=== PATIENT | male | born 1970 | race Caucasian/White ===

== ENCOUNTER 2023-07-09 13:50 | Outpatient (OUT) | payer OTHER, SELFPAY ==
--- NOTE | 2023-07-09 | XR_ITS ---
The [address] [address] Patient Name: DONNY BLAS MRN: [id number] date: 1970 Sex: M Assigned Patient Location: [facility] Current Patient Location: Accession/Order Number: [id number] Exam Date: 07/09/2023 14:15 Report Date: 07/10/2023 09:31 At the request of: DEV CONTI Procedure: XR foot LT min 3V PROCEDURE: XR foot LT min 3V HISTORY: LEFT FOOT PAIN , heel pain for one month, no known injury COMPARISON: None. FINDINGS: BONES:No fracture, acute abnormality, or significant arthropathy. SOFT TISSUES:No visible soft tissue swelling. EFFUSION:None visible. OTHER: Negative. XR/XR foot LT min 3V IMPRESSION: 1. No acute or suspicious bone abnormality. 2. Tiny calcaneal plantar spur of uncertain clinical significance. Electronically authenticated by: BRAN BABIN Date: 07/10/2023 09:31
== END 2023-07-09 13:51 | disposition home or self-care (01) ==
LOC: RAD 13:50
PROVIDERS: Visit Provider Physician Assistant
DX: M79.672 Pain in left foot (principal); M77.32 Calcaneal spur, left foot
CPT/HCPCS: 73630

== ENCOUNTER 2023-07-14 12:12 | Outpatient (OUT) | payer OTHER, SELFPAY ==
--- NOTE | 2023-07-14 12:33 | XR_ITS ---
[address] [address] Patient Name: DONNY BLAS MRN: [id number] date: 1970 Sex: M Assigned Patient Location: LAB Current Patient Location: LAB Accession/Order Number: [id number] Exam Date: 07/14/2023 12:28 Report Date: 07/14/2023 13:18 At the request of: SHAIKH JESSE Procedure: XR cervical spine 2-3V EXAM: XR cervical spine 2-3V HISTORY: Chronic Neck Pain M54.2 COMPARISON: None. TECHNIQUE: 3 views Findings/impression: Status post anterior fusion of C5-C6. Anterolisthesis of C4-C5 by 3 mm. No acute fracture or subluxation. Multilevel endplate degenerative changes and disc disease. Electronically authenticated by: MOISES BANDA Date: 07/14/2023 13:18
[2023-07-14 13:01] LABS: Basophils Absolute Auto 0.1 10^3/uL (0.0-0.1); Basophils Percent Auto 1.2 % (0.2-2.0); Eosinophils Absolute Auto 0.2 10^3/uL (0.0-0.7); Eosinophils Percent Auto 2.9 % (0.9-7.0); Hematocrit 39.4 % (42.0-54.0); Hemoglobin 13.3 g/dL (14.0-18.0); Immature Granulocytes Abs Auto 0.02 10^3/uL (0.00-0.03); Immature Granulocytes Pct Auto 0.3 % (0.0-0.5); Lymphocytes Absolute Auto 2.6 10^3/uL (1.2-3.8); Lymphocytes Percent Auto 37.3 % (20.5-60.0); Mean Corpuscular HGB Conc 33.8 g/dL (29.9-35.2); Mean Corpuscular Hemoglobin 31.4 pg (25.9-34.0); Mean Corpuscular Volume 92.9 fL (80.0-94.0); Mean Platelet Volume 11.2 fL (9.5-13.5); Monocytes Absolute Auto 0.3 10^3/uL (0.3-0.8); Monocytes Percent Auto 4.9 % (1.7-12.0); Neutrophils Absolute Auto 3.7 10^3/uL (1.4-6.5); Neutrophils Percent Auto 53.4 % (43.0-75.0); Platelet Count 184 10^3/uL (150-450); Red Blood Count 4.24 10^6/uL (4.70-6.10); Red Cell Distribution Width 12.8 % (11.0-15.0); White Blood Count 6.9 10^3/uL (4.0-11.0)
[2023-07-14 13:37] LABS: Alanine Aminotransferase 16 U/L (16-63); Albumin Globulin Ratio 1.1; Albumin Level 3.9 g/dL (3.4-5.0); Alkaline Phosphatase 60 U/L (46-116); Anion Gap 9.3; Aspartate Amino Transferase 12 U/L (15-37); BUN Creatinine Ratio 14.1; Bilirubin Total 0.7 mg/dL (0.2-1.0); Calcium 8.9 mg/dL (8.5-10.1); Carbon Dioxide 31.5 mmol/L (21.0-32.0); Chloride 100 mmol/L (98-107); Estimated GFR (African America >60 (>=60); Estimated GFR (Non-African Ame >60 (>=60); Globulin 3.6 g/dL; Glucose 70 mg/dL (74-106); Potassium 3.8 mmol/L (3.5-5.1); Sodium 137 mmol/L (136-145); Total Protein 7.5 g/dL (6.4-8.2)
== END 2023-07-14 12:13 | disposition home or self-care (01) ==
LOC: LAB 12:14
PROVIDERS: PCP Internal Medicine; Visit Provider Internal Medicine
DX: I10 Essential (primary) hypertension (principal); M54.2 Cervicalgia; G89.29 Other chronic pain; Z98.1 Arthrodesis status; M50.90 Cervical disc disorder, unspecified, unspecified cervical region; M47.812 Spondylosis without myelopathy or radiculopathy, cervical region
CPT/HCPCS: 36415; 72040; 80053; 85025

== ENCOUNTER 2023-09-07 07:55 | Outpatient (OUT) | payer OTHER, SELFPAY ==
--- NOTE | 2023-09-07 08:06 | MR_ITS ---
[address] [address] Patient Name: DONNY BLAS MRN: [id number] date: 1970 Sex: M Assigned Patient Location: MRI Current Patient Location: MRI Accession/Order Number: [id number] Exam Date: 09/07/2023 08:20 Report Date: 09/07/2023 09:28 At the request of: SHAIKH JESSE Procedure: MR cervical spine wo con EXAM: MR cervical spine wo con CLINICAL INDICATION: Neck Pain With History Of Cervical Spine Surgery M54.2 COMPARISON: Cervical spine radiographs 07/14/2023. TECHNIQUE/PROTOCOL: Standard noncontrast cervical spine protocol MR performed (Sagittal STIR, T1, T2, axial gradient, T2-weighted images). FINDINGS: Evaluation is limited due to substantial patient motion artifact. Spinal Cord: Normal in caliber and grossly normal in signal. Alignment: Normal craniocervical junction. Straightening of the physiologic cervical lordosis could relate at least in part to patient positioning. Postoperative Changes: ACDF at C5-C6. Marrow Signal: Grossly normal. Vertebral Body Heights: Maintained. Paraspinal Soft Tissues: Normal. Neck Soft Tissues: Normal. Spondylotic Changes: Multilevel spondylotic changes include diffuse disc desiccation and varying degrees of intervertebral disc height loss, osteophytic ridging, and facet/uncovertebral joint hypertrophy. C2-C3: Slight left central disc osteophyte complex indents the ventral thecal sac. Mild spinal canal narrowing. Right foramen is patent. Mild left foraminal narrowing is contributed to by uncovertebral and facet joint hypertrophy. C3-C4: No gross disc bulge or herniation. No high-grade spinal canal narrowing. Suspected moderate to advanced bilateral foraminal narrowing is contributed to by uncovertebral and facet joint hypertrophy. Complete evaluation of foraminal narrowing is limited due to patient motion artifact. C4-C5: No gross disc bulge or herniation. No high-grade spinal canal narrowing. Suspected advanced right and mild left foraminal narrowing is contributed to by uncovertebral and facet joint hypertrophy. Complete evaluation of foraminal narrowing is limited due to patient motion artifact. C5-C6: No gross disc bulge or herniation. No high-grade spinal canal narrowing. Suspected moderate to advanced bilateral foraminal narrowing is contributed to by uncovertebral and facet joint hypertrophy. Complete evaluation of foraminal narrowing is limited due to patient motion artifact. C6-C7: Suspected slight disc osteophyte complex indents the ventral thecal sac. This in conjunction with ligamentum flavum hypertrophy overall results in mild spinal canal narrowing. Suspected advanced bilateral foraminal narrowing is contributed to by uncovertebral and facet joint hypertrophy. C7-T1: No disc bulge or herniation. No high-grade spinal canal or foraminal narrowing. MR/MR cervical spine wo con IMPRESSION: 1. Limited evaluation due to substantial patient motion artifact. Given this constraint, there are multilevel spondylotic changes without high-grade spinal canal narrowing at any cervical level. 2. Suspected advanced right foraminal narrowing at C4-C5 and advanced bilateral foraminal narrowing at C6-C7. Suspected moderate to advanced bilateral foraminal narrowing at C3-C4 and C5-C6. Electronically authenticated by: MERLE SANCHEZ Date: 09/07/2023 09:28
== END 2023-09-07 07:56 | disposition home or self-care (01) ==
LOC: MRI 07:55
PROVIDERS: PCP Internal Medicine; Visit Provider Internal Medicine
DX: M54.2 Cervicalgia (principal)
CPT/HCPCS: 72141

== ENCOUNTER 2024-01-01 14:00 | Emergency (ER) | payer OTHER, SELFPAY ==
[2024-01-01 14:01] VITALS: BP 162/109; PULSE 80; TEMP 36.7; O2SAT 100; BMI 28.1
[2024-01-01 14:31] LABS: Glucometer 200 mg/dL (74-106)
[2024-01-01] MEDS: ONDANSETRON PF 4 MG/2 ML VIAL IV (14:48)
[2024-01-01] MEDS: 0.9 % SODIUM CHLORIDE 1,000 ML 999 ML IV (14:49)
[2024-01-01 15:06] LABS: Basophils Absolute Auto 0.1 10^3/uL (0.0-0.1); Basophils Percent Auto 0.3 % (0.2-2.0); Hematocrit 41.3 % (42.0-54.0); Hemoglobin 14.5 g/dL (14.0-18.0); Immature Granulocytes Pct Auto 0.5 % (0.0-0.5); Lymphocytes Absolute Auto 1.2 10^3/uL (1.2-3.8); Mean Corpuscular HGB Conc 35.1 g/dL (29.9-35.2); Mean Corpuscular Hemoglobin 30.4 pg (25.9-34.0); Mean Corpuscular Volume 86.6 fL (80.0-94.0); Monocytes Absolute Auto 0.7 10^3/uL (0.3-0.8); Monocytes Percent Auto 3.4 % (1.7-12.0); Neutrophils Absolute Auto 18.6 10^3/uL (1.4-6.5); Neutrophils Percent Auto 89.8 % (43.0-75.0); Platelet Count 236 10^3/uL (150-450); Red Blood Count 4.77 10^6/uL (4.70-6.10); Red Cell Distribution Width 12.2 % (11.0-15.0); White Blood Count 20.7 10^3/uL (4.0-11.0)
--- NOTE | 2024-01-01 15:11 | ED_ITS ---
Documented by User: Lala Federica 01/01/24 18:40 HPI - Nausea/Vomiting/Diarrhea General Chief complaint: Nausea/Vomiting/Diarrhea Stated complaint: ABDOMINAL PAIN Time Seen by Provider: 01/01/24 14:09 Source: patient Mode of arrival: walk-in History of Present Illness HPI Narrative: 53-year-old male presents for chief complaint of nausea and vomiting. Patient states has been unable to keep any fluids down today. He is hyperventilating states he has lower abdominal pain From vomiting so frequently. He denies a history of diabetes. He denies any fever. He states he has been chilled. He denies any known sick contacts.Patient's abdomen is soft on examination. He is afebrile. He denies a history of hypertension but blood pressure is elevated at this time. He does not appear toxic but does appear to feel ill. Related Data Previous Rx's ?Medication ?Instructions ?Recorded dicyclomine 20 mg tablet 20 mg PO TID PRN abdominal pain 01/01/24 #10 tabs ondansetron 4 mg disintegrating 4 mg PO Q8H PRN nausea and 01/01/24 tablet vomiting 3 days #10 tabs Allergies Allergy/AdvReac Type Severity Reaction Status Date / Time No Known Drug Allergies Allergy Verified 01/01/24 14:05 Review of Systems ROS Narrative All Systems are negative except as noted/marked.All systems reviewed and otherwise negative Exam Narrative Exam Narrative: Nurses note and vital signs reviewed and patient is not hypoxic. General: The patient appears ill with some distress due to nausea and vomiting Skin: Warm, dry, no pallor noted. There is no rash noted. Head: Normocephalic, atraumatic Eye: Normal conjunctiva, no drainage, EOMI. PERRL Ears, Nose, Mouth, and Throat: oral mucosa is moist. Nares patent. Mouth without vesicles. Ear canals patent. Tm's without Erythema Cardiovascular: Regular Rate and Rhythm Respiratory: Patient is in mild distress and hyperventilating due to vomting Back: non-tender, no CVA tenderness bilaterally to percussion. GI: Normal bowel sounds, no tenderness to palpation, no masses appreciated. No rebound, guarding, or rigidity noted. Musculoskeletal: The patient has no evidence of calf tenderness, no pitting edema, symmetrical pulses noted bilaterally Neurological: A&O x3 , normal speech Psychiatric: Cooperative Constitutional Vital Signs, click to edit/add: Last Vital Signs Temp 98.0 F 01/01/24 14:01 Pulse 80 01/01/24 14:01 Resp 22 H 01/01/24 14:01 BP 180/94 H 01/01/24 18:09 Pulse Ox 100 01/01/24 14:01 O2 Del Method Room Air 01/01/24 14:01 Course Vital Signs Vital signs: Vital Signs Temperature 98.0 F 01/01/24 14:01 Pulse Rate 80 01/01/24 14:01 Respiratory Rate 22 H 01/01/24 14:01 Blood Pressure 162/109 H 01/01/24 14:01 Pulse Oximetry 100 01/01/24 14:01 Oxygen Delivery Method Room Air 01/01/24 14:01 Temperature 98.0 F 01/01/24 14:01 Pulse Rate 80 01/01/24 14:01 Respiratory Rate 22 H 01/01/24 14:01 Blood Pressure 180/94 H 01/01/24 18:09 Pulse Oximetry 100 01/01/24 14:01 Oxygen Delivery Method Room Air 01/01/24 14:01 MDM - Nausea/Vomiting/Diarrhea MDM Narrative Medical decision making narrative: 53-year-old male presents for chief complaint of nausea and vomiting. Patient states has been unable to keep any fluids down today. He is hyperventilating states he has lower abdominal pain From vomiting so frequently. He denies a history of diabetes. He denies any fever. He states he has been chilled. He denies any known sick contacts.Patient's abdomen is soft on examination. He is afebrile. He denies a history of hypertension but blood pressure is elevated at this time. He does not appear toxic but does appear to feel ill. Upon arrival to emergency room, IV was established patient was given IV fluids. CBC, CMP and lactic acid were ordered. Blood work resulted in an elevated white blood cell count with shift BUN and creatinine within normal limits, glucose was 188, initial lactic acid was 3.7. Patient was given 2 L IV fluid Zofran and Phenergan. He states he feels much better. CT scan was ordered due to elevated white blood cell count. CT scan read as enterocolitis. Repeat lactic acid was 2.2. Patient feels much better and wishes to go home. Medicated with Toradol. He will be discharged home with Zofran and Mayelin. Patient was educated on clear liquid diet for the next 48 hours. Patient is continue with Gatorade and fluids. He will follow-up with primary care physician. Patient agrees with plan of care all questions were answered Differential Diagnosis Differential diagnosis: Likely traveler's diarrhea, food poisoning and gastroenteritis Medical Records Attestation: I reviewed the patient's medical records. Lab Data Attestation: I reviewed the patient's lab results. Labs: Lab Results 01/01/24 01/01/24 01/01/24 Range/Units 14:30 14:48 14:51 WBC 20.7 H (4.0-11.0) 10^3/uL RBC 4.77 (4.70-6.10) 10^6/uL Hgb 14.5 (14.0-18.0) g/dL Hct 41.3 L (42.0-54.0) % MCV 86.6 (80.0-94.0) fL MCH 30.4 (25.9-34.0) pg MCHC 35.1 (29.9-35.2) g/dL RDW 12.2 (11.0-15.0) % Plt Count 236 (150-450) 10^3/uL MPV 12.0 (9.5-13.5) fL Neut % (Auto) 89.8 H (43.0-75.0) % Lymph % (Auto) 6.0 L (20.5-60.0) % [place] % (Auto) 3.4 (1.7-12.0) % Eos % (Auto) 0.0 L (0.9-7.0) % Baso % (Auto) 0.3 (0.2-2.0) % Neut # (Auto) 18.6 H (1.4-6.5) 10^3/uL Lymph # (Auto) 1.2 (1.2-3.8) 10^3/uL [place] # (Auto) 0.7 (0.3-0.8) 10^3/uL Eos # (Auto) 0.0 (0.0-0.7) 10^3/uL Baso # (Auto) 0.1 (0.0-0.1) 10^3/uL Abs Immat Gran (auto) 0.10 H (0.00-0.03) 10^3/uL Imm/Tot Granulo (auto) 0.5 (0.0-0.5) % Sodium 137 (136-145) mmol/L Potassium 3.1 L (3.5-5.1) mmol/L Chloride 99 (98-107) mmol/L Carbon Dioxide 22.2 (21.0-32.0) mmol/L Anion Gap 18.9 BUN 15.0 (7.0-18.0) mg/dL Creatinine 1.12 (0.70-1.30) mg/dL Est GFR ( Amer) >60 (>=60) Est GFR (Non-Af Amer) >60 (>=60) BUN/Creatinine Ratio 13.4 Glucose 188 H (74-106) mg/dL Lactate 3.7 H* (0.4-2.0) mmol/L Calcium 10.3 H (8.5-10.1) mg/dL Total Bilirubin 1.3 H (0.2-1.0) mg/dL AST 15 (15-37) U/L ALT 29 (16-63) U/L Alkaline Phosphatase 72 (46-116) U/L Troponin I High Sens 7.7 (4.0-76.1) pg/mL Total Protein 8.4 H (6.4-8.2) g/dL Albumin 4.6 (3.4-5.0) g/dL Globulin 3.8 g/dL Albumin/Globulin Ratio 1.2 Lipase 21.0 (16.0-77.0) U/L Influenza Type A Ag Negative Influenza Type B Ag Negative POC Glucose 200 H (74-106) mg/dL 01/01/24 Range/Units 17:45 WBC (4.0-11.0) 10^3/uL RBC (4.70-6.10) 10^6/uL Hgb (14.0-18.0) g/dL Hct (42.0-54.0) % MCV (80.0-94.0) fL MCH (25.9-34.0) pg MCHC (29.9-35.2) g/dL RDW (11.0-15.0) % Plt Count (150-450) 10^3/uL MPV (9.5-13.5) fL Neut % (Auto) (43.0-75.0) % Lymph % (Auto) (20.5-60.0) % [place] % (Auto) (1.7-12.0) % Eos % (Auto) (0.9-7.0) % Baso % (Auto) (0.2-2.0) % Neut # (Auto) (1.4-6.5) 10^3/uL Lymph # (Auto) (1.2-3.8) 10^3/uL [place] # (Auto) (0.3-0.8) 10^3/uL Eos # (Auto) (0.0-0.7) 10^3/uL Baso # (Auto) (0.0-0.1) 10^3/uL Abs Immat Gran (auto) (0.00-0.03) 10^3/uL Imm/Tot Granulo (auto) (0.0-0.5) % Sodium (136-145) mmol/L Potassium (3.5-5.1) mmol/L Chloride (98-107) mmol/L Carbon Dioxide (21.0-32.0) mmol/L Anion Gap BUN (7.0-18.0) mg/dL Creatinine (0.70-1.30) mg/dL Est GFR ( Amer) (>=60) Est GFR (Non-Af Amer) (>=60) BUN/Creatinine Ratio Glucose (74-106) mg/dL Lactate 2.2 H* (0.4-2.0) mmol/L Calcium (8.5-10.1) mg/dL Total Bilirubin (0.2-1.0) mg/dL AST (15-37) U/L ALT (16-63) U/L Alkaline Phosphatase (46-116) U/L Troponin I High Sens (4.0-76.1) pg/mL Total Protein (6.4-8.2) g/dL Albumin (3.4-5.0) g/dL Globulin g/dL Albumin/Globulin Ratio Lipase (16.0-77.0) U/L Influenza Type A Ag Influenza Type B Ag POC Glucose (74-106) mg/dL Imaging Data CT scan - abdomen: Attestation: I have reviewed the pertinent imaging results. Radiologist's impression: ITS Impressions Chest X-Ray 01/01/24 15:28 IMPRESSION: 1. The costophrenic angles are not included within the [id number], however, these can be assessed on the upcoming CT abdomen/pelvis. 2. No acute cardiopulmonary abnormality of the visualized chest. Electronically authenticated by: MIREYA LINDSAY Date: 01/01/2024 15:46 Abdomen/Pelvis CT 01/01/24 16:38 IMPRESSION: Findings may represent enterocolitis, correlate clinically. Electronically authenticated by: MERRILL HUMPHREY Date: 01/01/2024 17:03 Discharge Plan Discharge Stand Alone Forms: Portal Instructions Chief Complaint: Nausea/Vomiting/Diarrhea Clinical Impression: Enterocolitis, Nausea & vomiting Patient Disposition: Home, Self-Care Time of Disposition Decision: 18:03 Condition: Good Prescriptions / Home Meds: New ondansetron 4 mg tablet,disintegrating 4 mg PO Q8H PRN (Reason: nausea and vomiting) 3 Days Qty: 10 0RF dicyclomine 20 mg tablet 20 mg PO TID PRN (Reason: abdominal pain) Qty: 10 0RF Print Language: Zambian Instructions: Acute Nausea and Vomiting (ED), Enteritis (ED) Referrals: Shaikh Quezada MD [Primary Care Provider] - 1 week Discharge Date/Time: 01/01/24 18:39 Documented by User: Lake Middleton MD 01/01/24 21:51 HPI - Nausea/Vomiting/Diarrhea General Chief complaint: Nausea/Vomiting/Diarrhea Stated complaint: ABDOMINAL PAIN Time Seen by Provider: 01/01/24 14:09 Related Data Previous Rx's ?Medication ?Instructions ?Recorded dicyclomine 20 mg tablet 20 mg PO TID PRN abdominal pain 01/01/24 #10 tabs ondansetron 4 mg disintegrating 4 mg PO Q8H PRN nausea and 01/01/24 tablet vomiting 3 days #10 tabs Allergies Allergy/AdvReac Type Severity Reaction Status Date / Time No Known Drug Allergies Allergy Verified 01/01/24 14:05 Exam Constitutional Vital Signs, click to edit/add: Last Vital Signs Temp 98.0 F 01/01/24 14:01 Pulse 80 01/01/24 14:01 Resp 22 H 01/01/24 14:01 BP 180/94 H 01/01/24 18:09 Pulse Ox 100 01/01/24 14:01 O2 Del Method Room Air 01/01/24 14:01 Course Vital Signs Vital signs: Vital Signs Temperature 98.0 F 01/01/24 14:01 Pulse Rate 80 01/01/24 14:01 Respiratory Rate 22 H 01/01/24 14:01 Blood Pressure 162/109 H 01/01/24 14:01 Pulse Oximetry 100 01/01/24 14:01 Oxygen Delivery Method Room Air 01/01/24 14:01 Temperature 98.0 F 01/01/24 14:01 Pulse Rate 80 01/01/24 14:01 Respiratory Rate 22 H 01/01/24 14:01 Blood Pressure 180/94 H 01/01/24 18:09 Pulse Oximetry 100 01/01/24 14:01 Oxygen Delivery Method Room Air 01/01/24 14:01 MDM - Nausea/Vomiting/Diarrhea MDM Narrative Medical decision making narrative: 53-year-old male presents for chief complaint of nausea and vomiting. Patient states has been unable to keep any fluids down today. He is hyperventilating states he has lower abdominal pain From vomiting so frequently. He denies a history of diabetes. He denies any fever. He states he has been chilled. He denies any known sick contacts.Patient's abdomen is soft on examination. He is afebrile. He denies a history of hypertension but blood pressure is elevated at this time. He does not appear toxic but does appear to feel ill. Upon arrival to emergency room, IV was established patient was given IV fluids. CBC, CMP and lactic acid were ordered. Blood work resulted in an elevated white blood cell count with shift BUN and creatinine within normal limits, glucose was 188, initial lactic acid was 3.7. Patient was given 2 L IV fluid Zofran and Phenergan. He states he feels much better. CT scan was ordered due to elevated white blood cell count. CT scan read as enterocolitis. Repeat lactic acid was 2.2. Patient feels much better and wishes to go home. Medicated with Toradol. He will be discharged home with Zofran and Bentyl. Patient was educated on clear liquid diet for the next 48 hours. Patient is continue with Gatorade and fluids. He will follow-up with primary care physician. Patient agrees with plan of care all questions were answered I, Dr Middleton, have reviewed the above progress note and course of action in the ER; agree with the above. I have personally seen and evaluated this patient, gone over history and physical, and discussed disposition and treatment plan with the patient. Lab Data Labs: Lab Results 01/01/24 01/01/24 01/01/24 Range/Units 14:30 14:48 14:51 WBC 20.7 H (4.0-11.0) 10^3/uL RBC 4.77 (4.70-6.10) 10^6/uL Hgb 14.5 (14.0-18.0) g/dL Hct 41.3 L (42.0-54.0) % MCV 86.6 (80.0-94.0) fL MCH 30.4 (25.9-34.0) pg MCHC 35.1 (29.9-35.2) g/dL RDW 12.2 (11.0-15.0) % Plt Count 236 (150-450) 10^3/uL MPV 12.0 (9.5-13.5) fL Neut % (Auto) 89.8 H (43.0-75.0) % Lymph % (Auto) 6.0 L (20.5-60.0) % [place] % (Auto) 3.4 (1.7-12.0) % Eos % (Auto) 0.0 L (0.9-7.0) % Baso % (Auto) 0.3 (0.2-2.0) % Neut # (Auto) 18.6 H (1.4-6.5) 10^3/uL Lymph # (Auto) 1.2 (1.2-3.8) 10^3/uL [place] # (Auto) 0.7 (0.3-0.8) 10^3/uL Eos # (Auto) 0.0 (0.0-0.7) 10^3/uL Baso # (Auto) 0.1 (0.0-0.1) 10^3/uL Abs Immat Gran (auto) 0.10 H (0.00-0.03) 10^3/uL Imm/Tot Granulo (auto) 0.5 (0.0-0.5) % Sodium 137 (136-145) mmol/L Potassium 3.1 L (3.5-5.1) mmol/L Chloride 99 (98-107) mmol/L Carbon Dioxide 22.2 (21.0-32.0) mmol/L Anion Gap 18.9 BUN 15.0 (7.0-18.0) mg/dL Creatinine 1.12 (0.70-1.30) mg/dL Est GFR ( Amer) >60 (>=60) Est GFR (Non-Af Amer) >60 (>=60) BUN/Creatinine Ratio 13.4 Glucose 188 H (74-106) mg/dL Lactate 3.7 H* (0.4-2.0) mmol/L Calcium 10.3 H (8.5-10.1) mg/dL Total Bilirubin 1.3 H (0.2-1.0) mg/dL AST 15 (15-37) U/L ALT 29 (16-63) U/L Alkaline Phosphatase 72 (46-116) U/L Troponin I High Sens 7.7 (4.0-76.1) pg/mL Total Protein 8.4 H (6.4-8.2) g/dL Albumin 4.6 (3.4-5.0) g/dL Globulin 3.8 g/dL Albumin/Globulin Ratio 1.2 Lipase 21.0 (16.0-77.0) U/L Influenza Type A Ag Negative Influenza Type B Ag Negative POC Glucose 200 H (74-106) mg/dL 01/01/24 Range/Units 17:45 WBC (4.0-11.0) 10^3/uL RBC (4.70-6.10) 10^6/uL Hgb (14.0-18.0) g/dL Hct (42.0-54.0) % MCV (80.0-94.0) fL MCH (25.9-34.0) pg MCHC (29.9-35.2) g/dL RDW (11.0-15.0) % Plt Count (150-450) 10^3/uL MPV (9.5-13.5) fL Neut % (Auto) (43.0-75.0) % Lymph % (Auto) (20.5-60.0) % [place] % (Auto) (1.7-12.0) % Eos % (Auto) (0.9-7.0) % Baso % (Auto) (0.2-2.0) % Neut # (Auto) (1.4-6.5) 10^3/uL Lymph # (Auto) (1.2-3.8) 10^3/uL [place] # (Auto) (0.3-0.8) 10^3/uL Eos # (Auto) (0.0-0.7) 10^3/uL Baso # (Auto) (0.0-0.1) 10^3/uL Abs Immat Gran (auto) (0.00-0.03) 10^3/uL Imm/Tot Granulo (auto) (0.0-0.5) % Sodium (136-145) mmol/L Potassium (3.5-5.1) mmol/L Chloride (98-107) mmol/L Carbon Dioxide (21.0-32.0) mmol/L Anion Gap BUN (7.0-18.0) mg/dL Creatinine (0.70-1.30) mg/dL Est GFR ( Amer) (>=60) Est GFR (Non-Af Amer) (>=60) BUN/Creatinine Ratio Glucose (74-106) mg/dL Lactate 2.2 H* (0.4-2.0) mmol/L Calcium (8.5-10.1) mg/dL Total Bilirubin (0.2-1.0) mg/dL AST (15-37) U/L ALT (16-63) U/L Alkaline Phosphatase (46-116) U/L Troponin I High Sens (4.0-76.1) pg/mL Total Protein (6.4-8.2) g/dL Albumin (3.4-5.0) g/dL Globulin g/dL Albumin/Globulin Ratio Lipase (16.0-77.0) U/L Influenza Type A Ag Influenza Type B Ag POC Glucose (74-106) mg/dL Imaging Data CT scan - abdomen: Radiologist's impression: ITS Impressions Chest X-Ray 01/01/24 15:28 IMPRESSION: 1. The costophrenic angles are not included within the [id number], however, these can be assessed on the upcoming CT abdomen/pelvis. 2. No acute cardiopulmonary abnormality of the visualized chest. Electronically authenticated by: MIREYA LINDSAY Date: 01/01/2024 15:46 Abdomen/Pelvis CT 01/01/24 16:38
[2024-01-01] MEDS: PROMETHAZINE HCL 25 MG in 0.9 % SODIUM CHLORIDE 50 ML 204 MG IV (15:16)
[2024-01-01 15:17] LABS: Influenza Virus A Antigen Negative; Influenza Virus B Antigen Negative; Internal Control Within Normal Limits
--- NOTE | 2024-01-01 15:28 | XR_ITS ---
The [address] [address] Patient Name: DONNY BLAS MRN: [id number] date: 1970 Sex: M Assigned Patient Location: ER Current Patient Location: Accession/Order Number: [id number] Exam Date: 01/01/2024 15:20 Report Date: 01/01/2024 15:46 At the request of: MICHAEL LUU Procedure: XR chest 1V EXAMINATION: XR chest 1V 01/01/2024 12:44 PM PDT HISTORY: short of breath TECHNIQUE: Single frontal view of the chest acquired. COMPARISONS: Chest x-ray 11/10/2021. FINDINGS: Lines/tubes/other: None. Heart and mediastinum: The heart and the mediastinum are within normal limits for technique. Bones: No acute osseous abnormality. Lungs: The lungs are clear. There is no evidence of pneumonia or pulmonary edema. Pleura: The costophrenic angles are included within the [id number]. There is no significant pleural effusion or pneumothorax. Other: None. XR/XR chest 1V IMPRESSION: 1. The costophrenic angles are not included within the [id number], however, these can be assessed on the upcoming CT abdomen/pelvis. 2. No acute cardiopulmonary abnormality of the visualized chest. Electronically authenticated by: MIREYA LINDSAY Date: 01/01/2024 15:46
[2024-01-01 15:36] LABS: Lactate/Lactic Acid 3.7 mmol/L (0.4-2.0)
[2024-01-01 15:40] LABS: Alanine Aminotransferase 29 U/L (16-63); Albumin Globulin Ratio 1.2; Albumin Level 4.6 g/dL (3.4-5.0); Alkaline Phosphatase 72 U/L (46-116); Anion Gap 18.9; Aspartate Amino Transferase 15 U/L (15-37); BUN Creatinine Ratio 13.4; Bilirubin Total 1.3 mg/dL (0.2-1.0); Calcium 10.3 mg/dL (8.5-10.1); Carbon Dioxide 22.2 mmol/L (21.0-32.0); Chloride 99 mmol/L (98-107); Estimated GFR (African America >60 (>=60); Estimated GFR (Non-African Ame >60 (>=60); Globulin 3.8 g/dL; Glucose 188 mg/dL (74-106); Potassium 3.1 mmol/L (3.5-5.1); Sodium 137 mmol/L (136-145); Total Protein 8.4 g/dL (6.4-8.2); Troponin I High Sensitivity 7.7 pg/mL (4.0-76.1)
[2024-01-01] MEDS: 0.9 % SODIUM CHLORIDE 1,000 ML 1000 ML IV (15:46)
--- NOTE | 2024-01-01 16:38 | CT_ITS ---
The [address] [address] Patient Name: DONNY BLAS MRN: [id number] date: 1970 Sex: M Assigned Patient Location: ER Current Patient Location: ER Accession/Order Number: [id number] Exam Date: 01/01/2024 16:25 Report Date: 01/01/2024 17:03 At the request of: MICHAEL LUU Procedure: CT abdomen pelvis w con EXAM: CT scan of the abdomen and pelvis using 100 mL of IV iodinated contrast. Dose reduction technique used: Automated exposure control and/or adjustment of the mA and/or kV according to patient size and/or use of iterative reconstruction technique. REASON FOR EXAM: nausea and vomiting COMPARISON: CT scan dated 11/10/2021 FINDINGS: Suggestion of mild small bowel and colonic wall thickening. L5-S1 posterior sharri and pedicle screw fusion with laminectomy. Hardware is intact. Multiple tiny hepatic cysts. Normal appendix. No free fluid in the abdomen or pelvis. No free intraperitoneal air. No dilated loops of small bowel or colon. No hydronephrosis or obstructing renal or ureteral calculi. Liver, pancreas, spleen, bilateral kidneys, and bilateral adrenal glands are otherwise unremarkable. No lymphadenopathy in the abdomen or pelvis. Remainder unremarkable. CT/CT abdomen pelvis w con IMPRESSION: Findings may represent enterocolitis, correlate clinically. Electronically authenticated by: MERRILL HUMPHREY Date: 01/01/2024 17:03
[2024-01-01 18:09] VITALS: BP 180/94
[2024-01-01 18:10] LABS: Lactate/Lactic Acid 2.2 mmol/L (0.4-2.0)
[2024-01-01] MEDS: KETOROLAC TROMETHAMINE 30 MG/ML VIAL IVP (18:35)
== END 2024-01-01 18:39 | disposition home or self-care (01) ==
PROVIDERS: Physician Assistant; Emergency Provider Emergency Medicine; PCP Internal Medicine
DX: K52.9 Noninfective gastroenteritis and colitis, unspecified (principal); R11.2 Nausea with vomiting, unspecified
CPT/HCPCS: 36415; 71045; 74177; 80053; 83605; 83690; 84484; 85025; 87804; 96361; 96374; 96375; 99285; Q9967